=== PATIENT | female | born 1975 | race Caucasian/White ===

== ENCOUNTER 2017-05-31 03:11 | Emergency (ER) | payer MEDICAID ==
[~2017-05-31] VITALS: Ht 165.1 cm; Wt 72.6 kg
--- NOTE | ~2017-05-31 | CR173 ---
[facility] A Service of [facility] RADIOLOGY TEXT RESULTS PATIENT: MATIAS ORTIZ LOCATION: SED : 77 UNIT #: [id number] AGE: [address]: Rj Smith MD SEX: F ORDER DR: [id number] [place] [address] [id number] E MR#: [id number] Acc #: [id number] NAME: MATIAS ORTIZ : 1975 SEX: F STUDY DATE/TIME: 05/31/2017 3:26 UNIT: SED ROOM: STUDY DESCRIPTION: CR Knee 3 Views Rt Attending Physician: Rj Smith M.D. Ordering Physician: Rj Smith M.D. Primary Care Physician: Primary Care Physician No MEDICAL IMAGING REPORT This report is preliminary unless electronic signature is present. EXAM Right knee, 05/31/2017 HISTORY 42-year-old female in the ED complaining of 2-hour history of right knee pain and swelling. Knee popped. TECHNIQUE Three-view right knee series. FINDINGS Examination shows a moderately large right knee joint effusion but is otherwise negative. No fracture, arthropathy or other osseous abnormality is demonstrated. IMPRESSION Moderately large knee joint effusion. Right knee series is otherwise negative. Dictated by... Elkin Hilton M.D. THIS IS AN ELECTRONICALLY VERIFIED REPORT Elkin Hilton M.D. at 05/31/2017 6:08 AM CHITO/saida TD: 05/31/2017 04:05 JOB #: [id number] [facility] A Service of [facility] RADIOLOGY TEXT RESULTS PATIENT: MATIAS ORTIZ LOCATION: SED : 77 UNIT #: [id number] AGE: [address]: Rj Smith MD SEX: F ORDER DR: MEDICAL IMAGING REPORT Page 1 of 1
[~2017-05-31 03:11] MED LIST: AMITRYPTYLINE; BUSPAR
== END 2017-05-31 04:14 | disposition home or self-care (01) ==
LOC: SED 03:11
DX: S83.91XA Sprain of unspecified site of right knee, initial encounter (principal); Z88.0 Allergy status to penicillin; X50.1XXA Overexertion from prolonged static or awkward postures, initial encounter; Y92.009 Unspecified place in unspecified non-institutional (private) residence as the place of occurrence of the external cause
CPT/HCPCS: 73562; 99283

== ENCOUNTER 2017-05-31 22:12 | Emergency (ER) | payer MEDICAID ==
[~2017-05-31] VITALS: Ht 167.6 cm; Wt 74.8 kg
== END 2017-05-31 22:54 | disposition home or self-care (01) ==
LOC: SED 22:12
DX: S83.91XA Sprain of unspecified site of right knee, initial encounter (principal); F17.200 Nicotine dependence, unspecified, uncomplicated; X50.1XXA Overexertion from prolonged static or awkward postures, initial encounter; Y92.009 Unspecified place in unspecified non-institutional (private) residence as the place of occurrence of the external cause
CPT/HCPCS: 99283

== ENCOUNTER 2017-07-05 09:58 | Emergency (ER) | payer MEDICAID ==
--- NOTE | ~2017-07-05 | CR170 ---
[facility] A Service of [facility] RADIOLOGY TEXT RESULTS PATIENT: MATIAS ORTIZ LOCATION: SED : 77 UNIT #: [id number] AGE: [address]: KERI HENLEY SEX: F ORDER DR: [id number] [address] [address] [id number] E MR#: [id number] Acc #: [id number] NAME: MATIAS ORTIZ : 1975 SEX: F STUDY DATE/TIME: 07/05/2017 11:08 UNIT: SED ROOM: STUDY DESCRIPTION: CR Knee 2 Views Rt Attending Physician: Miguel A Barbosa Ordering Physician: Staff Doctor Not On Primary Care Physician: No Primary Care Physician MEDICAL IMAGING REPORT This report is preliminary unless electronic signature is present. EXAM Right knee. INDICATIONS Right knee pain, swelling for 6 weeks. COMPARISON 05/31/2017 FINDINGS AP and cross-table lateral views of the left knee were obtained. There is small joint effusion is present. The bones are normal. There is no fracture. IMPRESSION Small joint effusion, otherwise, normal. Dictated by... Estrada Cardenas M.D. THIS IS AN ELECTRONICALLY VERIFIED REPORT Estrada Cardenas M.D. at 07/06/2017 10:03 AM ARELI/jorge luis TD: 07/05/2017 22:13 JOB #: [id number] MEDICAL IMAGING REPORT [facility] A Service of [facility] RADIOLOGY TEXT RESULTS PATIENT: MATIAS ORTIZ LOCATION: SED : 77 UNIT #: [id number] AGE: [address]: KERI HENLEY SEX: F ORDER DR: Page 1 of 1
[2017-07-05] MEDS ORDERED: MOBIC (10:04)
[2017-07-05] MEDS ORDERED: FLEXERIL (10:04)
== END 2017-07-05 11:50 | disposition home or self-care (01) ==
LOC: SED 09:58
DX: M25.561 Pain in right knee (principal); G89.29 Other chronic pain; F41.9 Anxiety disorder, unspecified; F17.210 Nicotine dependence, cigarettes, uncomplicated; Z88.0 Allergy status to penicillin; Z90.710 Acquired absence of both cervix and uterus
CPT/HCPCS: 29505; 73560; 99283